=== PATIENT | female | born 1950 | race Caucasian/White ===

== ENCOUNTER 2022-07-03 08:55 | Day surgery (SDC) | payer MEDICARE ==
--- NOTE | 2022-07-03 08:38 | HP ---
DATE OF SURGERY: 07/03/2022 HISTORY OF PRESENT ILLNESS: The patient is a 72-year-old with no bloody stools, no change in bowel movements. No new pain. Family history negative for colon cancer. Last colonoscopy was twelve years or so ago, unsure. She is in of follow up screening colonoscopy. PAST MEDICAL HISTORY: Diabetes mellitus type II. Glaucoma. Hyperlipidemia. Heartburn. Cataracts in the past. PAST SURGICAL HISTORY: Cholecystectomy. Colonoscopy. Hysterectomy. 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 MEDICATIONS: Lisinopril, atorvastatin, Trulicity, Toujeo, timolol eye drops. ALLERGIES: NKDA. FAMILY HISTORY: Breast cancer, lung cancer. Negative for colon cancer. SOCIAL HISTORY: No smoking. Occasional alcohol use. REVIEW OF SYSTEMS: Fourteen systems reviewed. No chest pain or palpitations. Other systems negative or noncontributory as above and per preadmission questionnaire. PHYSICAL EXAMINATION: Height 5'4". BMI 24. GENERAL: No acute distress. HEENT: Sclerae nonicteric. EOMI. Oropharynx mucous membranes moist. NECK: No JVD. CHEST: Equal excursion, nonlabored breathing. CVS: Regular rate and rhythm. ABDOMEN: Soft. EXTREMITIES: No significant edema. NEURO: Alert, oriented, moving extremities symmetrically. RECTAL: Deferred timed to endoscopy exam. PSYCH: Appropriate mood and affect. SKIN: Dry. IMPRESSION: Last colonoscopy twelve years or so ago, needs follow up screening colonoscopy. I feel the patient is a candidate. Shown the risk sheet, explained the procedure in detail including but not limited to risk of bleeding or infection, risk of bowel injury or perforation, risk of missed or nondiagnosis or incomplete exam possibly requiring barium enema, other studies or procedures, general risk of anesthesia or sedation, risk of bowel prep but not limited to, consent obtained. Will proceed with outpatient follow up screening colonoscopy under MAC anesthesia.
[2022-07-03] MEDS ORDERED: Lactated Ringers 1,000 ML IV SCH (10:00)
[2022-07-03] MEDS ORDERED: Xylocaine-Mpf 2% 5 Ml Vial ONE (11:27)
[2022-07-03] MEDS ORDERED: DIPRIVAN 200 MG/20 ML IV ONE ×2 (11:28→11:41)
[2022-07-03 12:54] VITALS: O2SAT 99
[2022-07-03] MEDS ORDERED: APRESOLINE 20 MG/ML INJ IV PRN (13:07)
[2022-07-03 13:33] VITALS: BP 158/78; PULSE 76
--- NOTE | 2022-07-04 09:52 | OP ---
SURGERY DATE/TIME: 07/03/2022 1128 PREOPERATIVE DIAGNOSIS: Need for screening colonoscopy. POSTOPERATIVE DIAGNOSES: 1) ASA Class III. 2) Mild pancolonic diverticulosis. 3) Multiple polyps throughout the colon the largest of which was 5 mm polyp in the sigmoid colon. 4) Fair slightly limited prep (some leafy vegetable matter throughout the colon) slightly limiting the exam. 5) Withdrawal time approximately eleven minutes. PROCEDURES: 1) Colonoscopy to cecum. 2) Hot snare polypectomy 5 mm sigmoid colon polyp removed with hot snare polypectomy. 3) Hot snare polypectomy of rectal polyps x2. 4) Hot biopsy polypectomy ascending colon polyp, transverse colon polyp, sigmoid colon polyp x1. 5) Hot biopsy polypectomy rectosigmoid colon polyps x2. SURGEON: Dr. Darshan Orozco. ANESTHESIA: MAC. ESTIMATED BLOOD LOSS: Minimal. INDICATIONS: As noted above. Risks and benefits explained in detail but not limited to and consent obtained. DESCRIPTION OF PROCEDURE AND FINDINGS: The patient is taken to the endoscopy room. MAC anesthesia induced. After official time out and no disagreement with planned procedure, digital rectal exam did not reveal any rectal masses. Video colonoscope inserted and passed up through the slightly tortuous sigmoid, descending, transverse and ascending colon around to the cecum. Appendiceal orifice and valve well visualized. Prep overall was only fair. There were several areas of clear colon but there were some areas of some liquidy semisolid stool as well as there is silviano leafy vegetable matter in the cecum and in a few other parts of the colon that slightly limited the exam for very small lesions. It was irrigated out and irrigated as clear as possible. Overall fair prep. Appendiceal orifice and ileocecal valve were photo documented. The scope is carefully withdrawn over the next eleven minutes. Small polyp in the descending colon, transverse colon removed with hot biopsy polypectomy. Small polyp in the sigmoid colon removed with hot biopsy polypectomy. In the distal sigmoid colon, there is a 5 mm polyp removed with hot snare polypectomy basically clear and viable. The scope pulled back to the sigmoid colon. A couple more small polyps removed with hot biopsy polypectomy. The scope was pulled back in the rectum, there were two small 3 mm polyps removed with hot snare polypectomy. Good hemostasis noted. Some minimal hemorrhoids. She did have some pancolonic small diverticula. There were no signs of any large masses or obstructing lesions. The scope is withdrawn. The patient tolerated the procedure well. Findings discussed with the family out in the waiting area. She might consider staying on liquids to full liquids for a few days before next time she preps.
== END 2022-07-03 13:38 | disposition home or self-care (01) ==
LOC: SDC 08:55
PROVIDERS: ATTEND Surgery
DX: Z12.11 Encounter for screening for malignant neoplasm of colon (principal); K57.30 Diverticulosis of large intestine without perforation or abscess without bleeding; E11.9 Type 2 diabetes mellitus without complications; Z80.3 Family history of malignant neoplasm of breast; Z80.1 Family history of malignant neoplasm of trachea, bronchus and lung; D12.7 Benign neoplasm of rectosigmoid junction; D12.4 Benign neoplasm of descending colon; D12.5 Benign neoplasm of sigmoid colon
CPT/HCPCS: 82947; 96374; J0360; J2704

== ENCOUNTER 2022-12-22 12:27 | Emergency (ER) | payer MEDICARE ==
[2022-12-22] MEDS ORDERED: TRANDATE 20 MG/4 ML SYRINGE IV ONE ×3 (13:09→14:01)
[2022-12-22 13:13] VITALS: TEMP 97.3
[2022-12-22 13:27] LABS: Absolute Neutrophil Ct (ANC) 4.81 x10^3/uL (1.4-6.9); BASOPHIL % 0.7 % (0.0-0.4); Basophil (Absolute #) 0.05 x10^3/uL (0-0.4); Eosinophil % 1.6 % (0.00-5.0); Eosinophil (Absolute #) 0.12 x10^3/uL (0-0.5); Hematocrit 39.9 % (35-47); IMMATURE GRAN # 0.03 x10^3u/L (0.00-0.03); IMMATURE GRAN % 0.4 % (0.00-0.4); Lymphocyte (Absolute #) 1.76 x10^3/uL (1.0-4.6); Lymphocytes % 23.5 % (24.0-44.0); Mean Cell Volume 83.3 fL (78-100); Mean Corpuscular Hemoglobin 27.1 pg (26-32); Mean Corpuscular Hgb Concent. 32.6 g/dL (32-36); Mean Platelet Volume 11.3 fL (7.5-11.0); Monocyte (Absolute #) 0.73 x10^3/uL (0.0-1.3); Monocytes % 9.7 % (0.0-12.0); NUCLEATED RBC # 0.02 x10^3u/L (0.00-0.01); NUCLEATED RBC % 0.3 % (0.00-0.1); Neutrophil % 64.1 % (36.0-66.0); Platelet Count 304 x10^3/uL (150-450); Red Blood Count 4.79 x10^6/uL (4.1-5.4); Red Cell Distribution Width 14.2 % (11.5-14.0); White Blood Count 7.5 x10^3/uL (4.0-10.5)
--- NOTE | 2022-12-22 13:41 | ERPHSYRPT ---
- History of Present Illness Source: patient, other Exam Limitations: no limitations () Patient Subjective Stated Complaint: Pt reports she was at Dr Person office when it was noticed that her blood pressure was 190s systolic in office and kept increasing, Dr Person office called Dr Pacheco office which is pts excel expert and they recommended coming to the ED. Pt also reports she has been dizzy today. Triage Nursing Assessment: Pt alert and oriented x3. Respirations easy/nonlabored. Skin w/p/d. Ambulated to ED cot with upright gait, minimally unsteady which pt relates to dizziness. Accompanied by significant other. Physician History: Patient is a 72-year-old female with elevated blood pressure today. Systolic is greater than 200 upon presentation ER. Patient states that she is little bit dizzy. 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 She takes lisinopril and Lopressor for blood pressure. She has no new focal weakness. Headache, chest pain, shortness of breath, fever are all denied. 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 Timing/Duration: today Severity: severe Modifying Factors: Improves With: nothing Associated Symptoms: denies symptoms Allergies/Adverse Reactions: empagliflozin [From Jardiance] Allergy (Verified 12/22/22 13:08) Cough nose bleed and coughing blood Home Medications: Brimonidine Tartrate/Timolol [Brimonidine-Timolol 0.2%-0.5%] 1 drop .ROUTE BID 06/05/22 [History] Dulaglutide [Trulicity] 3.05 unit SQ WEEKLY 06/05/22 [History] Insulin Glargine,Hum.rec.anlog [Rosi Solana] 66 unit SQ DAILY 06/05/22 [History] Latanoprost [Xalatan] 1 drop .ROUTE DAILY 06/05/22 [History] Lisinopril 10 mg [Zestril 10 MG] 20 mg PO DAILY 06/05/22 [History] Timolol [Betimol] 1 drop L BID 06/05/22 [History] Metoprolol Succinate 25 mg Xl* [Toprol-Xl 25MG Tablets] 0.5 tab PO DAILY 12/22/22 [History] Hx Tetanus, Diphtheria Vaccination/Date Given: No Hx Influenza Vaccination/Date Given: No Hx Pneumococcal Vaccination/Date Given: Yes Travel Risk - International Travel Have you traveled outside of the country in past 3 weeks: No - Coronavirus Screening Are you exhibiting any of the following symptoms?: No Close contact with a COVID-19 positive Pt in past 14-21 Days: No - Vaccine Status Have you recieved a Covid-19 vaccination: No - Review of Systems Constitutional: No Symptoms Eyes: No Symptoms Ears, Nose, & Throat: No Symptoms Respiratory: No Symptoms Cardiac: No Symptoms Abdominal/Gastrointestinal: No Symptoms Genitourinary Symptoms: No Symptoms Musculoskeletal: No Symptoms Skin: No Symptoms Neurological: No Symptoms, Dizziness Psychological: No Symptoms Endocrine: No Symptoms Hematologic/Lymphatic: No Symptoms Immunological/Allergic: No Symptoms - Past Medical History Pertinent Past Medical History: Yes Neurological History: Other ENT History: Glaucoma, Other Cardiac History: Hypertension Respiratory History: No Pertinent History Endocrine Medical History: Diabetes Type II Musculoskeletal History: No Pertinent History GI Medical History: No Pertinent History History: No Pertinent History Psycho-Social History: No Pertinent History Female Reproductive Disorders: No Pertinent History Other Medical History: extremly dry eye, murmur, acoustical neuroma - Past Surgical History Past Surgical History: Yes Neuro Surgical History: Other Respiratory: No Pertinent History Gastrointestinal: Cholecystectomy Genitourinary: No Pertinent History Musculoskeletal: No Pertinent History Female Surgical History: Hysterectomy Other Surgical History: brain tumor, deaf right ear, - Social History Smoking Status: Never smoker Exposure to second hand smoke: No Drug Use: none Patient Lives Alone: No - Nursing Vital Signs Nursing Vital Signs: Initial Vital Signs Temperature 97.3 F 12/22/22 13:01 Pulse Rate 79 12/22/22 13:01 Respiratory Rate 16 12/22/22 13:01 Blood Pressure 260/112 12/22/22 13:01 O2 Sat by Pulse Oximetry 98 12/22/22 13:01 Pain Scale Pain Intensity 0 Markedly hypertensive - Physical Exam General Appearance: no apparent distress (72-year-old female in no apparent distress) Eye Exam: other (Patient has chronic erythema bilateral eyes/pupils equal round and reactive direct and consensually/extraocular movements intact.) Ears, Nose, Throat Exam: pharynx normal Neck Exam: normal inspection, non-tender, supple, full range of motion, No meningismus, No mass, No Brudzinski, No Kernig's Respiratory Exam: normal breath sounds, lungs clear, airway intact Cardiovascular Exam: regular rate/rhythm (Regular rate rhythm with 2/6 systolic ejection murmur) Gastrointestinal/Abdomen Exam: soft, normal bowel sounds Back Exam: normal inspection, normal range of motion Extremity Exam: normal inspection, normal range of motion Neurologic Exam: alert, oriented x 3, cooperative, normal mood/affect, sensation nml, other (Patient with chronic right facial droop/ states that there has been no progression in the condition is chronic.) Skin Exam: normal color, warm, dry Lymphatic Exam: No adenopathy SpO2 Interpretation: normal SpO2: 98 O2 Delivery: Room Air - Course Nursing assessment & vital signs reviewed: Yes EKG Interpreted by Me: RATE (Normal sinus rhythm/rate 76/normal QT QTc/no acute ST segment changes/normal limit P wave/normal T waves/no acute ST segment changes.) - CT Exams Head CT Interpretation: Discussed w/radiologist (Nonacute senile brain with remote lacunar infarct left caudate head. Right cerebellum encephalomalacia with bony calvarium changes either postsurgical versus old injury/insult.) Ordered Tests: Active Orders 24 hr Category Date Time Status EKG-ER Only STAT Care 12/22/22 13:12 Active IV Insertion STAT Care 12/22/22 13:08 Active HEAD WITHOUT CONTRAST [CT] Stat Exams 12/22/22 13:35 Completed CBC W DIFF Stat Lab 12/22/22 13:20 Completed CMP Stat Lab 12/22/22 13:20 Completed PROTIME WITH INR Stat Lab 12/22/22 13:20 Completed PTT Stat Lab 12/22/22 13:20 Completed TROPONIN Q4H Lab 12/22/22 13:20 Completed TROPONIN Q4H Lab 12/22/22 17:15 Ordered TROPONIN Q4H Lab 12/22/22 21:15 Ordered Medication Summary Generic Name Dose Route Start Last Admin Trade Name Freq PRN Reason Stop Dose Admin Clonidine HCl 0.1 mg 12/22/22 15:30 12/22/22 15:32 Clonidine Hcl 0.1 Mg Patch TOP 01/21/23 15:29 0.1 mg Q7D JORGITO Administration Discontinued Medications Generic Name Dose Route Start Last Admin Trade Name Rupal PRN Reason Stop Dose Admin Labetalol HCl 20 mg 12/22/22 13:09 12/22/22 13:26 Labetalol Hcl 20 Mg/4 Ml Disp.Syringe IV 12/22/22 13:10 20 mg STAT ONE Administration Labetalol HCl Confirm 12/22/22 13:25 Labetalol Hcl 20 Mg/4 Ml Disp.Syringe Administered 12/22/22 13:26 Dose 20 mg IV .STK-MED ONE Labetalol HCl 20 mg 12/22/22 14:01 12/22/22 14:46 Labetalol Hcl 20 Mg/4 Ml Disp.Syringe IV 12/22/22 14:02 Not Given STAT ONE Lab/Rad Data: Laboratory Result Diagrams 12/22/22 13:20 12/22/22 13:20 Laboratory Results 12/22/22 12/22/22 12/22/22 Range/Units 13:20 13:20 13:20 WBC (4.0-10.5) x10^3/uL RBC (4.1-5.4) x10^6/uL Hgb (12.0-16.0) g/dL Hct (35-47) % MCV (78-100) fL MCH (26-32) pg MCHC (32-36) g/dL RDW (11.5-14.0) % Plt Count (150-450) x10^3/uL MPV (7.5-11.0) fL Gran % (36.0-66.0) % Immature Gran % (Auto) (0.00-0.4) % Nucleat RBC Rel Count (0.00-0.1) % Eos # (Auto) (0-0.5) x10^3/uL Immature Gran # (Auto) (0.00-0.03) x10^3u/L Absolute Lymphs (auto) (1.0-4.6) x10^3/uL Absolute Monos (auto) (0.0-1.3) x10^3/uL Absolute Nucleated RBC (0.00-0.01) x10^3u/L Lymphocytes % (24.0-44.0) % Monocytes % (0.0-12.0) % Eosinophils % (0.00-5.0) % Basophils % (0.0-0.4) % Absolute Granulocytes (1.4-6.9) x10^3/uL Basophils # (0-0.4) x10^3/uL PT 10.7 (9.4-12.5) SECONDS INR 0.98 (0.8-3.0) APTT 29.6 (25.1-36.5) SECONDS Sodium 136 L (137-145) mmol/L Potassium 4.5 (3.5-5.1) mmol/L Chloride 100 (98-107) mmol/L Carbon Dioxide 25 (22-30) mmol/L Anion Gap 15.0 (5-15) MEQ/L BUN 26 H (7-17) mg/dL Creatinine 0.86 (0.52-1.04) mg/dL Estimated GFR 72.6 ML/MIN Glucose 218 H (74-106) mg/dL Calcium 9.7 (8.4-10.2) mg/dL Total Bilirubin 1.40 H (0.2-1.3) mg/dL AST 33 (14-36) U/L ALT 34 (0-35) U/L Alkaline Phosphatase 95 (38-126) U/L Troponin I < 0.012 (0.000-0.034) ng/mL Serum Total Protein 7.3 (6.3-8.2) g/dL Albumin 4.5 (3.5-5.0) g/dL 12/22/22 Range/Units 13:20 WBC 7.5 (4.0-10.5) x10^3/uL RBC 4.79 (4.1-5.4) x10^6/uL Hgb 13.0 (12.0-16.0) g/dL Hct 39.9 (35-47) % MCV 83.3 (78-100) fL MCH 27.1 (26-32) pg MCHC 32.6 (32-36) g/dL RDW 14.2 H (11.5-14.0) % Plt Count 304 (150-450) x10^3/uL MPV 11.3 H (7.5-11.0) fL Gran % 64.1 (36.0-66.0) % Immature Gran % (Auto) 0.4 (0.00-0.4) % Nucleat RBC Rel Count 0.3 H (0.00-0.1) % Eos # (Auto) 0.12 (0-0.5) x10^3/uL Immature Gran # (Auto) 0.03 (0.00-0.03) x10^3u/L Absolute Lymphs (auto) 1.76 (1.0-4.6) x10^3/uL Absolute Monos (auto) 0.73 (0.0-1.3) x10^3/uL Absolute Nucleated RBC 0.02 H (0.00-0.01) x10^3u/L Lymphocytes % 23.5 L (24.0-44.0) % Monocytes % 9.7 (0.0-12.0) % Eosinophils % 1.6 (0.00-5.0) % Basophils % 0.7 (0.0-0.4) % Absolute Granulocytes 4.81 (1.4-6.9) x10^3/uL Basophils # 0.05 (0-0.4) x10^3/uL PT (9.4-12.5) SECONDS INR (0.8-3.0) APTT (25.1-36.5) SECONDS Sodium (137-145) mmol/L Potassium (3.5-5.1) mmol/L Chloride (98-107) mmol/L Carbon Dioxide (22-30) mmol/L Anion Gap (5-15) MEQ/L BUN (7-17) mg/dL Creatinine (0.52-1.04) mg/dL Estimated GFR ML/MIN Glucose (74-106) mg/dL Calcium (8.4-10.2) mg/dL Total Bilirubin (0.2-1.3) mg/dL AST (14-36) U/L ALT (0-35) U/L Alkaline Phosphatase (38-126) U/L Troponin I (0.000-0.034) ng/mL Serum Total Protein (6.3-8.2) g/dL Albumin (3.5-5.0) g/dL - Progress Progress: improved Progress Note: 12/22/22 16:32 Nursing note and vital signs reviewed. No food or housing insecurity is noted. Additional history per . All lab results reviewed and shared with patient and . CTA head result reviewed and shared with patient and . BP decreased to within normal levels with 20 mg IV labetalol. Patient's neuro exam was consistent throughout her stay without evidence of new focal weakness per her . Clonidine patch 0.1 mg placed. Patient has appointment with Dr. Stone on Sunday and was advised to keep that appointment. Patient without any chest pain, shortness of breath, fever, nuchal rigidity, or significant headache. Counseled pt/family regarding: lab results, diagnosis, need for follow-up, rad results Medical Desision Making - Independent Historian Additional History obtained from: Spouse - Diagnostic Testing Diagnostic test were ordered, analyzed, and reviewed by me: Yes Radiological Interpretation: Reviewed by me - Risk of complications The pt has a mod risk of morbidity or mortality based on: Need for prescription drug management - Departure Departure Disposition: Home Clinical Impression: Hypertensive urgency Condition: Stable Critical Care Time: No Referrals: DOCTOR,NO FAMILY [Primary Care Provider] - Follow up/PCP as directed Instructions: Malignant Hypertension (DC) Additional Instructions: Continue current medications Keep your appoint with Dr. Stone on Sunday Keep the clonidine patch on for 1 week and then remove our until has you remove it Return to ER for new focal weakness, worsening headache, chest pain, shortness o f breath, or uncontrolled blood pressure.
[2022-12-22 13:43] LABS: ALBUMIN 4.5 g/dL (3.5-5.0); BILIRUBIN,TOTAL 1.4 mg/dL (0.2-1.3); Calcium 9.7 mg/dL (8.4-10.2); Creatinine 1 0.86 mg/dL (0.52-1.04); EST GLOMERULAR FILTRATION RATE 72.6 ML/MIN; Potassium 4.5 mmol/L (3.5-5.1); Total Protein 7.3 g/dL (6.3-8.2)
[2022-12-22 13:44] LABS: INR 0.98 (0.8-3.0); PROTIME 10.7 SECONDS (9.4-12.5); PTT 29.6 SECONDS (25.1-36.5)
--- NOTE | 2022-12-22 13:56 | XRAY ---
Indication: Hypertension and dizziness. Stroke. Multiple contiguous axial images obtained through the head without contrast. Comparison: None Age-appropriate global atrophy, minimal periventricular degenerative micro-ischemia bilaterally, and remote lacunar infarct left caudate head. Marked right cerebellar encephalomalacia with adjacent bony calvarium thinning/defects either postsurgical versus old injury/insult. No acute and coronal hemorrhage, hydrocephalus, or mass effect. Fourth ventricle is midline. Remaining bony calvarium intact. Visualized paranasal sinuses and mastoid air cells are clear. Impression: Nonacute senile brain with remote lacunar infarct left caudate head. Right cerebellum encephalomalacia with bony calvarium changes either postsurgical versus old injury/insult.
[2022-12-22] MEDS ORDERED: Catapres-TTS 1 PATCH TOP SCH (15:30)
[2022-12-22 16:00] VITALS: BP 185/75; PULSE 76; RESP 19
[2022-12-22 16:35] VITALS: O2SAT 98
== END 2022-12-22 16:31 | disposition home or self-care (01) ==
LOC: ED 12:27
DX: I16.0 Hypertensive urgency (principal); I10 Essential (primary) hypertension; R42 Dizziness and giddiness; E11.319 Type 2 diabetes mellitus with unspecified diabetic retinopathy without macular edema; Z79.85 Long-term (current) use of injectable non-insulin antidiabetic drugs; Z79.4 Long term (current) use of insulin; Z79.899 Other long term (current) drug therapy; Z28.310 Unvaccinated for COVID-19
CPT/HCPCS: 36000; 36415; 70450; 80053; 84484; 85025; 85610; 85730; 93005; 96374; 99284; A9270-GY

== ENCOUNTER 2024-06-03 20:07 | Emergency (ER) | payer MEDICARE ==
--- NOTE | 2024-06-03 20:15 | ERPHSYRPT ---
- History of Present Illness Time Seen by Provider: 06/03/24 20:14 Source: patient Exam Limitations: no limitations Physician History: Patient is a 74-year-old female presents to our ED with her for evaluation of acute onset lower extremity weakness and slurred speech. Symptoms started approximately 6 PM during the start of a baseball game. Patient and sat through the baseball game. Symptoms worsen. states that he figured the slurred speech would improve. He was not too worried at the time. However after the game he observed that patient's speech was worse and patient was having a more difficult time standing. brought patient to our ED for an evaluation. Upon arrival patient had a right-sided facial droop and slurred speech. No obvious focal or lateralizing motor deficits. Patient was rushed to the CAT scanner for CT head and CTA head and neck. Patient's glucose was 142 Timing/Duration: today Severity: moderate Modifying Factors: Improves With: nothing Associated Symptoms: denies symptoms Allergies/Adverse Reactions: empagliflozin [From Jardiance] Allergy (Verified 06/03/24 20:41) Cough nose bleed and coughing blood Home Medications: Brimonidine Tartrate/Timolol [Brimonidine-Timolol 0.2%-0.5%] 1 drop .ROUTE BID 06/05/22 [History] Insulin Glargine,Hum.rec.anlog [Rosi Vaughan] 66 unit SQ DAILY 06/05/22 [History] Latanoprost [Xalatan] 1 drop .ROUTE DAILY 06/05/22 [History] Lisinopril 10 mg [Zestril 10 MG] 20 mg PO HS 06/05/22 [History] timoloL [Betimol] 1 drop L BID 06/05/22 [History] Metoprolol Succinate 25 mg Xl* [Toprol-Xl 25MG Tablets] 0.5 tab PO HS 12/22/22 [History] Clonidine HCl 0.1 mg [Clonidine 0.1 mg Tablet] 0.1 mg PO DAILY 06/03/24 [History] Semaglutide [Ozempic] 1 mg SQ WEEKLY 06/03/24 [History] Hx Tetanus, Diphtheria Vaccination/Date Given: No Hx Influenza Vaccination/Date Given: No Hx Pneumococcal Vaccination/Date Given: Yes - Review of Systems Constitutional: No Symptoms, No Fever, No Chills Eyes: No Symptoms Ears, Nose, & Throat: No Symptoms Respiratory: No Symptoms, No Cough, No Dyspnea Cardiac: No Symptoms, No Chest Pain, No Edema, No Syncope Abdominal/Gastrointestinal: No Symptoms, No Abdominal Pain, No Nausea, No Vomiting, No Diarrhea Genitourinary Symptoms: No Symptoms, No Dysuria Musculoskeletal: No Symptoms, No Back Pain, No Neck Pain Skin: No Symptoms, No Rash Neurological: No Symptoms, No Dizziness, No Focal Weakness, No Sensory Changes Psychological: No Symptoms Endocrine: No Symptoms Hematologic/Lymphatic: No Symptoms Immunological/Allergic: No Symptoms All Other Systems: Reviewed and Negative - Past Medical History Pertinent Past Medical History: Yes Neurological History: Other ENT History: Glaucoma, Other Cardiac History: Hypertension Respiratory History: No Pertinent History Endocrine Medical History: Diabetes Type II Musculoskeletal History: No Pertinent History GI Medical History: No Pertinent History History: No Pertinent History Psycho-Social History: No Pertinent History Female Reproductive Disorders: No Pertinent History Other Medical History: extremly dry eye, murmur, acoustical neuroma - Past Surgical History Past Surgical History: Yes Neuro Surgical History: Other Respiratory: No Pertinent History Gastrointestinal: Cholecystectomy Genitourinary: No Pertinent History Musculoskeletal: No Pertinent History Female Surgical History: Hysterectomy Other Surgical History: brain tumor, deaf right ear, - Social History Smoking Status: Never smoker Exposure to second hand smoke: No Drug Use: none Patient Lives Alone: No - Nursing Vital Signs Nursing Vital Signs: Initial Vital Signs Temperature 96.1 F 06/03/24 20:24 Pulse Rate 94 H 06/03/24 20:24 Respiratory Rate 20 06/03/24 20:24 Blood Pressure 173/62 06/03/24 20:24 O2 Sat by Pulse Oximetry 97 06/03/24 20:24 Pain Scale Pain Intensity 0 - Physical Exam General Appearance: no apparent distress, alert Eye Exam: PERRL/EOMI, eyes nml inspection Ears, Nose, Throat Exam: normal ENT inspection, pharynx normal, moist mucous membranes Neck Exam: normal inspection, full range of motion Respiratory Exam: normal breath sounds, lungs clear, No respiratory distress Cardiovascular Exam: regular rate/rhythm, normal heart sounds, normal peripheral pulses Gastrointestinal/Abdomen Exam: soft, normal bowel sounds, No tenderness, No mass Back Exam: normal inspection, normal range of motion, No CVA tenderness, No vertebral tenderness Extremity Exam: normal inspection, normal range of motion, pelvis stable Neurologic Exam: alert, oriented x 3, cooperative, normal mood/affect, sensation nml, slurred speech, other (Right-sided facial droop with diminished sensation. Ataxic [id number]), No motor deficits Skin Exam: normal color, warm, dry, No rash Lymphatic Exam: No adenopathy SpO2 Interpretation: normal SpO2: 97 O2 Delivery: Room Air - Course Nursing assessment & vital signs reviewed: Yes EKG Interpreted by Me: RATE (90), Sinus Rhythm, NORMAL AXIS, NORMAL INTERVALS, NORMAL QRS - CT Exams Head CT Interpretation: Tele-radiologist Report (Stable nonacute senile brain with remote lacunar infarct left caudate head. Right cerebellum encephalomalacia with bony calvarium changes. Either postsurgical versus old injury/insult.) Soft Tissue Neck CT Interpretation: Tele-radiologist Report (CTA neck 70 to 80% stenosis left ICA 99% stenosis right ICA. Vertebral arteries patent with dominant left vertebral artery. 4 mm indeterminate left lung apex noncalcified nodule) Other CT Interpretation: Tele-radiologist Report (CTA head no comps mild scattered arteriosclerotic ICAs bilaterally without critical stenosis or obstruction. Remaining CTA head negative for) Ordered Tests: Active Orders 24 hr Category Date Time Status Animal Geneticist STAT Care 06/03/24 20:13 Active EKG-ER Only STAT Care 06/03/24 20:12 Active IV Insertion STAT Care 06/03/24 20:12 Active Pulse Oximetry (ED) STAT Care 06/03/24 20:[address] ANGIOGRAPHY NECK [CT] Stat Exams 06/03/24 20:14 Taken CTA HEAD W AND/OR WO CONTRAST [CT] Stat Exams 06/03/24 20:13 Taken HEAD WITHOUT CONTRAST [CT] Stat Exams 06/03/24 20:07 Taken CBC W DIFF Stat Lab 06/03/24 20:15 Completed CMP Stat Lab 06/03/24 20:15 Completed TROPONIN Q4H Lab 06/03/24 20:15 Completed TROPONIN Q4H Lab 06/04/24 00:15 Ordered TROPONIN Q4H Lab 06/04/24 04:15 Ordered Medication Summary Generic Name Dose Route Start Last Admin Trade Name Freq PRN Reason Stop Dose Admin Sodium Chloride 1,000 mls @ 50 mls/hr 06/03/24 20:15 06/03/24 20:19 Sodium Chloride 0.9% 1000 Ml IV 07/03/24 20:14 50 mls/hr .Q20H JORGITO Administration Discontinued Medications Generic Name Dose Route Start Last Admin Trade Name Rupal PRN Reason Stop Dose Admin Alteplase, Recombinant 54.18 mg 06/03/24 21:00 06/03/24 21:05 Alteplase 100 Mg Vial 0.9 mg/kg (54.18 mg) 06/03/24 21:01 54.18 mg IV Administration ONCE ONE Lab/Rad Data: Laboratory Result Diagrams 06/03/24 20:15 06/03/24 20:15 Laboratory Results 06/03/24 06/03/24 06/03/24 Range/Units 20:15 20:15 20:15 WBC 9.3 (3.98-10.04) x10^3/uL RBC 4.22 (3.93-5.22) x10^6/uL Hgb 12.4 (11.2-15.7) g/dL Hct 36.9 (34.1-44.9) % MCV 87.4 (79.4-94.8) fL MCH 29.4 (25.6-32.2) pg MCHC 33.6 (32.2-35.5) g/dL RDW 13.2 (11.7-14.4) % Plt Count 420 H (182-369) x10^3/uL MPV 10.3 (9.4-12.3) fL Gran % 68.9 (34.0-71.1) % Immature Gran % (Auto) 0.3 (0.001-0.429) % Nucleat RBC Rel Count 0.0 (0.00-0.2) % Eos # (Auto) 0.08 (0.04-0.36) x10^3/uL Immature Gran # (Auto) 0.03 (0.001-0.031) x10^3u/L Absolute Lymphs (auto) 1.83 (1.18-3.74) x10^3/uL Absolute Monos (auto) 0.86 (0.24-0.86) x10^3/uL Absolute Nucleated RBC 0.00 (0.00-0.012) x10^3u/L Lymphocytes % 19.8 (19.3-51.7) % Monocytes % 9.3 (4.7-12.5) % Eosinophils % 0.9 (0.7-5.8) % Basophils % 0.8 (0.1-1.2) % Absolute Granulocytes 6.39 H (1.56-6.13) x10^3/uL Basophils # 0.07 (0.01-0.08) x10^3/uL Sodium 142 (135-145) mmol/L Potassium 4.1 (3.5-5.1) mmol/L Chloride 101 (98-107) mmol/L Carbon Dioxide 26 (22-30) mmol/L Anion Gap 19.4 H (5-15) MEQ/L BUN 22 H (7-17) mg/dL Creatinine 0.81 (0.52-1.04) mg/dL Estimated GFR 77.1 ML/MIN Glucose 142 H (74-106) mg/dL Calcium 9.7 (8.4-10.2) mg/dL Total Bilirubin 1.00 (0.2-1.3) mg/dL AST 29 (14-36) U/L ALT 20 (0-35) U/L Alkaline Phosphatase 97 (38-126) U/L Troponin I < 0.012 (0.000-0.033) ng/mL Serum Total Protein 6.6 (6.3-8.2) g/dL Albumin 4.3 (3.5-5.0) g/dL - Progress Progress: improved Progress Note: Case discussed with Dr. Tabor hospitalist at [facility] who accepts transfer to [facility] at 9:26 PM. Plan of care discussed with patient and . They agree to transfer to [facility] for further evaluation and treatment. Portions of this note were created with voice recognition technology. There may be grammatical, spelling, punctuation or sound alike errors 06/03/24 21:29. 74-year-old female presents to our ED for evaluation of slurred speech and leg weakness that started at approximately 6 PM. Patient arrived to our ED approximately an hour and a half after the onset of symptoms. Stat CT head stroke protocol negative for acute intracranial pathology. Stat CTA head and neck negative for LVO however CT a neck show 70 to 80% stenosis of the left ICA and 99% stenosis of the right ICA. Physical exam revealed a right-sided facial droop with diminished sensation. Patient also had slurred speech. Patient had an ataxic [id number] as well. Teleneurologist consulted. After his evaluation he advised tenecteplase however we have tPA. He agreed to tPA. tPA administered. The remaining laboratory workup was essentially nonremarkable. Patient will be transferred to neuro ICU at [facility]. Plan of care discussed with patient's and his . They agree to transfer to [facility] for further evaluation and treatment. Portions of this note were created with voice recognition technology. There may be grammatical, spelling, punctuation or sound alike errors Complexity of problem addressed is moderate acute complicated. No critical care time. Complexity of data reviewed and analyzed as extensive. Test ordered chest reviewed results analyzed and correlated clinically with history and physical exam. Management discussed with teleneurologist and hospitalist at [facility]. Risk of complication and or risk of morbidity/mortality of patient management is high. Patient requires hospitalization/transfer to higher level of care. Vital stable. Time spent to transfer patient is approximately 15 minutes. Plan of care established for shared decision making. No social determinants of health present to impede follow-up. Portions of this note were created with voice recognition technology. There may be grammatical, spelling, punctuation or sound alike errors 06/03/24 21:47 Counseled pt/family regarding: lab results, diagnosis, rad results - Departure Departure Disposition: Transfer Clinical Impression: Stroke, Slurred speech Condition: Stable Critical Care Time: Yes Critical Care Time(excluding separately billable procedures): Critical 105-134 mins Referrals: DOCTOR,NO FAMILY [Primary Care Provider, UNKNOWN] - Follow up/PCP as directed
[2024-06-03] MEDS ORDERED: Sodium Chloride 0.9% 1000 ML 1,000 ML ONE (20:18)
[2024-06-03 20:19] LABS: Absolute Neutrophil Ct (ANC) 6.39 x10^3/uL (1.56-6.13); BASOPHIL % 0.8 % (0.1-1.2); Basophil (Absolute #) 0.07 x10^3/uL (0.01-0.08); Eosinophil % 0.9 % (0.7-5.8); Eosinophil (Absolute #) 0.08 x10^3/uL (0.04-0.36); Hematocrit 36.9 % (34.1-44.9); Hemoglobin 12.4 g/dL (11.2-15.7); IMMATURE GRAN # 0.03 x10^3u/L (0.001-0.031); IMMATURE GRAN % 0.3 % (0.001-0.429); Lymphocyte (Absolute #) 1.83 x10^3/uL (1.18-3.74); Lymphocytes % 19.8 % (19.3-51.7); Mean Cell Volume 87.4 fL (79.4-94.8); Mean Corpuscular Hemoglobin 29.4 pg (25.6-32.2); Mean Corpuscular Hgb Concent. 33.6 g/dL (32.2-35.5); Mean Platelet Volume 10.3 fL (9.4-12.3); Monocyte (Absolute #) 0.86 x10^3/uL (0.24-0.86); Monocytes % 9.3 % (4.7-12.5); Neutrophil % 68.9 % (34.0-71.1); Platelet Count 420 x10^3/uL (182-369); Red Blood Count 4.22 x10^6/uL (3.93-5.22); Red Cell Distribution Width 13.2 % (11.7-14.4); White Blood Count 9.3 x10^3/uL (3.98-10.04)
[2024-06-03] MEDS: Sodium Chloride 0.9% 1000 ML 1,000 ML IV SCH (20:19)
[2024-06-03 20:33] LABS: ALBUMIN 4.3 g/dL (3.5-5.0); ANION GAP 19.4 MEQ/L (5-15); Calcium 9.7 mg/dL (8.4-10.2); Creatinine 1 0.81 mg/dL (0.52-1.04); EST GLOMERULAR FILTRATION RATE 77.1 ML/MIN; Potassium 4.1 mmol/L (3.5-5.1); Total Protein 6.6 g/dL (6.3-8.2)
[2024-06-03 20:42] VITALS: TEMP 96.1
[2024-06-03] MEDS: Activase 100 MG IV ONE (21:05)
[2024-06-03 23:53] VITALS: BP 133/58; PULSE 78; RESP 18
[2024-06-03 23:55] VITALS: O2SAT 97
--- NOTE | 2024-06-04 08:40 | XRAY ---
Indication: Slurred speech. Stroke. Multiple contiguous axial images obtained through the head without contrast. Comparison: December 22, 2022 Age-appropriate global atrophy, minimal periventricular degenerative micro-ischemia bilaterally, and remote lacunar infarct left caudate head unchanged. Stable marked right cerebellar encephalomalacia with adjacent bony calvarium thinning/defects either postsurgical versus old injury/insult. Again no acute intracranial hemorrhage, hydrocephalus, or mass effect. Fourth ventricle is midline. Remaining bony calvarium intact. Visualized paranasal sinuses and mastoid air cells are clear. Impression: Again nonacute senile brain with remote lacunar infarct left caudate head. Also grossly stable right cerebellum encephalomalacia with bony calvarium changes either postsurgical versus old injury/insult.
--- NOTE | 2024-06-04 08:48 | XRAY ---
Indication: Slurred speech. Stroke. Conventional contrast enhanced CTA neck performed using 100 cc Isovue 370 contrast. 2-D sagittal and coronal reformatted images obtained. Additional 3-D reformatted images obtained using separate workstation. Comparison: None Visualized aortic arch mildly arteriosclerotic with aneurysm/dissection. There is normal branching right brachiocephalic, left common carotid, and left subclavian arteries with mild/moderate arteriosclerotic calcifications all branches, greatest extent left subclavian artery where there is 80-90% stenosis. Examination right carotid circulation demonstrates minimal/mild scattered arteriosclerotic calcifications in common carotid artery and carotid bulb. This further extends into origin/proximal internal carotid artery where there is 99% stenosis. External carotid artery is normal in CTA appearance. Examination left carotid circulation also demonstrates mild scattered arteriosclerotic disease in common carotid artery and carotid bulb. Moderate arteriosclerotic disease seen in origin internal carotid artery where there is 70-80% stenosis. External carotid artery is normal in CTA appearance. Vertebral arteries are bilaterally patent with left vertebral artery dominant in size. Visualized soft tissues demonstrates a few subcentimeter cervical/submandibular nodes bilaterally. No pathologic lymphadenopathy. Thyroid gland enhances homogeneously. Supra and infraglottic airway are widely patent. Visualized osseous structures intact with minimal/mild C4-C7 degenerative disc disease. Lung apices demonstrates 4 mm left apical noncalcified nodule. Impression: 1. Mildly arteriosclerotic aortic arch and great branches. Greatest extent seen left subclavian artery where there 80-90% stenosis. 2. Scattered arteriosclerotic disease carotid circulation bilaterally. Greatest extent origin/proximal right internal carotid artery where there is 99% stenosis. Lesser 70-80% stenosis seen origin left internal carotid artery. 3. Bilateral patent vertebral arteries with dominant left vertebral artery. 4. Indeterminate 4 mm left apical noncalcified lung nodule. 5. Incidental C4-C7 degenerative disc disease.
--- NOTE | 2024-06-04 09:16 | XRAY ---
Indication: Slurred speech. Stroke. Conventional contrast enhanced CTA head performed using 100 cc Isovue 370 contrast. 2-D sagittal and coronal reformatted images obtained. Additional 3-D reformatted images obtained using separate workstation. Comparison: None Distal internal carotid arteries are bilaterally symmetric with mild scattered arteriosclerotic calcifications in both parasellar internal carotid arteries. No critical stenosis/obstruction or AV malformation. Normal carotid terminus with normal branching A1 and M1 segments bilaterally. More distal anterior cerebral and middle cerebral arteries are normal in CTA appearance bilaterally. Posterior circulation demonstrates tiny distal right vertebral artery and patent left vertebral artery. Normal CTA appearance to the remaining basilar, left/right posterior cerebral, and left/right superior cerebellar arteries. Venous sinuses/drainage unremarkable. Brain parenchyma is negative for abnormal enhancement. CT head is reported separately. Impression: Mildly arteriosclerotic parasellar internal carotid arteries bilaterally without critical stenosis/obstruction. Remaining CTA head with contrast exam is negative.
== END 2024-06-03 23:50 | disposition short-term general hospital (02) ==
LOC: ED 20:07
DX: I63.233 Cerebral infarction due to unspecified occlusion or stenosis of bilateral carotid arteries (principal); R47.81 Slurred speech; R29.810 Facial weakness; I10 Essential (primary) hypertension; E11.9 Type 2 diabetes mellitus without complications; Z79.85 Long-term (current) use of injectable non-insulin antidiabetic drugs; Z79.4 Long term (current) use of insulin; Z79.899 Other long term (current) drug therapy
CPT/HCPCS: 36415; 70450; 70496; 70498; 80053; 84484; 85025; 93005; 93041; 94760; 96374; 99291; 99292; Q3014; 99285; J2997